=== PATIENT | male | born 1960 | race Caucasian/White ===

== ENCOUNTER → 2021-05-07 | Outpatient (REF) | payer OTHER | LOC: M SFHCRHEU 15:50 | PROVIDERS: ATTEND Internal Medicine | DX: Z53.20 Procedure and treatment not carried out because of patient's decision for unspecified reasons (principal) ==

== ENCOUNTER → 2021-05-18 | Outpatient (CLI) | payer OTHER ==
--- NOTE | 2021-05-23 15:51 | SLEEPHOME ---
DATE: 05/18/2021 ORDERED BY: Dr. Milla Maria, Rheumatology Diagnostic home sleep testing was performed due to concern for the obstructive sleep apnea syndrome in this patient with a history of chronic fatigue. There was 9 hours and 59 minutes of data reviewed. There was 8 hours and 11 minutes marked as time in bed. During the interval marked time in bed, there were 162 respiratory events identified of 10 seconds in duration or greater for a respiratory event index of 19.8. The events were obstructive. Baseline pulse rate 73. Pulse rate ranged 58-192. Baseline saturation 92%. Saturations fell to 78%, and testing was performed in both the supine and nonsupine positions. IMPRESSION: Abnormal home sleep testing with repetitive respiratory events and oxygen desaturations to 78% with a respiratory event index of 19.8 is consistent with the obstructive sleep apnea syndrome. RECOMMENDATION: The patient should be encouraged to undergo formal sleep evaluation.
== END ==
LOC: M SLEEP HO 10:46
PROVIDERS: ATTEND Internal Medicine
DX: R53.82 Chronic fatigue, unspecified (principal)

== ENCOUNTER → 2021-11-23 | Outpatient (REF) | payer OTHER ==
[2021-11-23 17:44] LABS: TOTAL PROTEIN 7.8 GM/DL (6.4-8.2)
[2021-11-27 14:57] LABS: ALBUMIN 4.42 GM/DL (3.29-5.55); ALBUMIN % 56.7 % (55.8-66.1); ALPHA-1-GLOBULIN % 4.1 % (2.9-4.9); ALPHA-1-GLOBULINS 0.32 GM/DL (0.17-0.41); ALPHA-2-GLOBULINS % 10.3 % (7.1-11.8); BETA-1-GLOBULINS 0.51 GM/DL (0.28-0.60); BETA-1-GLOBULINS % 6.5 % (4.7-7.2); BETA-2-GLOBULINS 0.48 GM/DL (0.19-0.55); BETA-2-GLOBULINS % 6.1 % (3.2-6.5); GAMMA GLOBULIN % 16.3 % (11.1-18.8); GAMMA GLOBULINS 1.27 GM/DL (0.65-1.58)
== END ==
LOC: M LAB REF 16:45
PROVIDERS: ATTEND Internal Medicine Nephrology
DX: N18.31 Chronic kidney disease, stage 3a (principal)

== ENCOUNTER → 2022-04-16 | Outpatient (REF) | payer OTHER ==
[2022-04-16 13:00] LABS: C REACTIVE PROTEIN QUANTITATIV 1.04 MG/DL (0.00-0.30)
== END ==
LOC: M SFHCRHEU 11:23
PROVIDERS: ATTEND Internal Medicine
DX: M35.01 Sjogren syndrome with keratoconjunctivitis (principal); E61.1 Iron deficiency

== ENCOUNTER 2022-09-08 21:05 | Emergency (ER) | payer OTHER ==
[~2022-09-08] VITALS: Ht 170.2 cm; Wt 101.3 kg
[2022-09-08 21:55] LABS: HEMATOCRIT 38.6 % (42.0-52.0); HEMOGLOBIN 13.1 g/dl (13.5-17.5); MEAN CORPUSCULAR HEMOGLOBIN 31.9 pg (27.0-33.0); MEAN CORPUSCULAR HGB CONC 33.9 g/dl (32.0-36.5); MEAN CORPUSCULAR VOLUME 93.9 fl (80.0-96.0); PLATELET COUNT, AUTOMATED 315 10^3/uL (150-450); RED BLOOD COUNT 4.11 10^6/uL (4.30-6.10)
[2022-09-08 22:11] LABS: BARBITURATES URINE NEGATIVE (NEGATIVE)
[2022-09-08 22:11] LABS: ETHYL ALCOHOL (ETHANOL) < 0.003 % (0.000-0.010)
[2022-09-08 22:12] LABS: AMPHETAMINES LEVEL URINE NEGATIVE (NEGATIVE); BENZODIAZEPINES URINE NEGATIVE (NEGATIVE); CANNABINOIDS URINE POSITIVE (NEGATIVE); COCAINE METABOLITE URINE NEGATIVE (NEGATIVE); METHADONE URINE NEGATIVE (NEGATIVE); OPIATES URINE NEGATIVE (NEGATIVE); PHENCYCLIDINE URINE NEGATIVE (NEGATIVE)
[2022-09-08 22:13] LABS: SALICYLATE LEVEL < 3.0 MG/DL (<30)
[2022-09-08 22:14] LABS: ACETAMINOPHEN LEVEL < 2.0 UG/ML (10.0-20.0); ALBUMIN 4.3 G/DL (3.2-5.2); ALKALINE PHOSPHATASE 71 U/L (46-116); ALT/SGPT 39 U/L (7.0-40); AST/SGOT 18 U/L (<34); BILIRUBIN,DIRECT 0.2 MG/DL (<0.4); BILIRUBIN,TOTAL 0.4 MG/DL (0.3-1.2); BLOOD UREA NITROGEN 15 MG/DL (9-23); CALCIUM LEVEL 9.2 MG/DL (8.3-10.6); CARBON DIOXIDE LEVEL 21 MMOL/L (20-31); CHLORIDE LEVEL 108 MMOL/L (98-107); GLOMERULAR FILTRATION RATE > 60.0 (>49); GLUCOSE, FASTING 124 MG/DL (74-106); POTASSIUM SERUM 3.9 MMOL/L (3.5-5.1); SODIUM LEVEL 139 MMOL/L (136-145); TOTAL PROTEIN 7.1 G/DL (5.7-8.2)
[2022-09-08 22:16] LABS: THYROID STIMULATING HORMONE 5.163 uIU/ML (0.55-4.78)
[2022-09-09] MEDS ORDERED: ENAL20TA11 PO (00:25)
[2022-09-09] MEDS ORDERED: PREG150C PO (00:25)
[2022-09-09] MEDS ORDERED: ZONI50CA11 PO ×2 (00:25)
[2022-09-09] MEDS ORDERED: HYDR-3490 PO (00:25)
[2022-09-09] MEDS ORDERED: HYDR200T3 PO (00:25)
[2022-09-09] MEDS ORDERED: DULO1CAP6 PO (00:25)
[2022-09-09] MEDS ORDERED: DULA4.5P INJ (00:25)
[2022-09-09] MEDS ORDERED: BUDE10.7 PO (00:25)
[2022-09-09] MEDS ORDERED: PANT40TA29 PO (00:25)
[2022-09-09] MEDS ORDERED: med rec comment (00:26)
[2022-09-09] MEDS ORDERED: LOVA40TA PO (00:26)
[2022-09-09] MEDS ORDERED: HOME MED LIST COMPLETE! XX SCH (00:30)
[2022-09-09] MEDS: SYMBICORT 160/4.5MCG INHALER 6GM INH SCH ×2 (08:00→21:10)
[2022-09-09] MEDS ORDERED: TIOTROPIUM INHALER/CAPSULE (SPIRIVA) INH SCH (08:00)
[2022-09-09] MEDS: PREGABALIN 75 MG CAP(LYRICA) PO SCH ×3 (09:00→20:32)
[2022-09-09] MEDS ORDERED: HYDROXYCHLOROQUINE 200 MG TAB PO SCH (09:00)
[2022-09-09] MEDS ORDERED: ENALAPRIL MALEATE 10 MG TAB PO SCH (09:00)
[2022-09-09] MEDS ORDERED: SIMVASTATIN 40 MG TAB PO SCH (09:00)
[2022-09-09] MEDS ORDERED: DULoxetine 30MG CAPSULE (CYMBALTA) PO SCH (09:00)
[2022-09-09] MEDS ORDERED: ZONISAMIDE 50 MG CAP (ZONEGRAN) PO SCH ×2 (09:00→21:00)
[2022-09-09 11:03] VITALS: BP 193/90
[2022-09-09 12:56] LABS: APPEARANCE, URINE MANUAL CLEAR (CLEAR); COLOR, URINE MANUAL YELLOW (YELLOW)
[2022-09-09 12:57] LABS: GLUCOSE, URINE (UA) MANUAL NEGATIVE (NEGATIVE); PROTEIN, URINE MANUAL NEGATIVE (NEGATIVE)
[2022-09-09 12:58] LABS: BILIRUBIN, URINE MANUAL NEGATIVE (NEGATIVE); BLOOD URINE MANUAL NEGATIVE (NEGATIVE); KETONE, URINE MANUAL 2+ mg/dL (NEGATIVE); LEUKOCYTE ESTERASE, URINE MAN NEGATIVE (NEGATIVE); NITRITE, URINE MANUAL NEGATIVE (NEGATIVE); UROBILINOGEN, URINE MANUAL NORMAL (NORMAL)
[2022-09-10 01:13] VITALS: BP 152/80
[2022-09-10] MEDS ORDERED: ZONISAMIDE 50 MG CAP (ZONEGRAN) PO SCH (09:00)
[2022-09-10] MEDS ORDERED: DULoxetine 30MG CAPSULE (CYMBALTA) PO SCH (09:00)
[2022-09-10] MEDS ORDERED: ENALAPRIL MALEATE 10 MG TAB PO SCH (09:00)
[2022-09-10] MEDS ORDERED: SIMVASTATIN 40 MG TAB PO SCH (09:00)
[2022-09-10] MEDS ORDERED: PANTOPRAZOLE 40MG TAB (PROTONIX) PO SCH (09:00)
[2022-09-10] MEDS ORDERED: HYDROXYCHLOROQUINE 200 MG TAB PO SCH (09:00)
== END 2022-09-10 01:27 ==
LOC: M ED 21:05
DX: R45.851 Suicidal ideations (principal); R45.850 Homicidal ideations; I44.4 Left anterior fascicular block; I45.10 Unspecified right bundle-branch block; E11.9 Type 2 diabetes mellitus without complications; E78.5 Hyperlipidemia, unspecified; I10 Essential (primary) hypertension; F12.10 Cannabis abuse, uncomplicated; Z79.52 Long term (current) use of systemic steroids; Z79.02 Long term (current) use of antithrombotics/antiplatelets; Z79.811 Long term (current) use of aromatase inhibitors; Z79.899 Other long term (current) drug therapy

== ENCOUNTER → 2022-11-26 | Outpatient (REF) | payer MEDICARE ==
[~2022-11-26] MED LIST: BUDE10.7 PO; DULA4.5P INJ; DULO1CAP6 PO; ENAL1TAB52 PO; HYDR-3490 PO; HYDR200T3 PO; LOVA40TA PO; PANT40TA29 PO; PREG150C PO; ZONI50CA11 PO; med rec comment
[2022-11-26 12:27] LABS: APPEARANCE, URINE CLEAR (CLEAR); BACTERIA, URINE AUTO NEGATIVE (NEGATIVE); BILIRUBIN, URINE AUTO NEGATIVE (NEGATIVE); BLOOD, URINE BLOOD NEGATIVE (NEGATIVE); COLOR, URINE STRAW (YELLOW); GLUCOSE, URINE (UA) AUTO NEGATIVE (NEGATIVE); KETONE, URINE AUTO NEGATIVE (NEGATIVE); LEUKOCYTE ESTERASE, URINE AUTO NEGATIVE (NEGATIVE); NITRITE, URINE AUTO NEGATIVE (NEGATIVE); PROTEIN, URINE AUTO NEGATIVE (NEGATIVE); RBC, URINE AUTO 0 /HPF (0-3); SPECIFIC GRAVITY URINE AUTO 1.005 (1.002-1.035); SQUAMOUS EPITHELIAL CELL UR AU 0 /HPF (0-6); UROBILINOGEN, URINE AUTO 0.2 mg/dL (0.0-2.0); WBC, URINE AUTO 0 /HPF (0-3)
[2022-11-26 13:05] LABS: CREATININE,RANDOM URINE 14.5 MG/DL
[2022-11-26 13:06] LABS: TOTAL PROTEIN,RANDOM URINE < 6.0 MG/DL (0.0-14.0)
[2022-11-26 16:45] LABS: C REACTIVE PROTEIN QUANTITATIV 0.6 MG/DL (<1.0)
[2022-11-26 16:46] LABS: COMPLEMENT C3 122.3 MG/DL (90.0-170.0); COMPLEMENT C4 33.5 MG/DL (12-36); PERCENT SATURATION 17.4 % (19.7-50.0)
[2022-11-28 15:08] LABS: COMPLEMENT TOTAL (CH50) > 60 U/mL (>41)
== END ==
LOC: M SFHCRHEU 11:36
PROVIDERS: ATTEND Internal Medicine
DX: M35.01 Sjogren syndrome with keratoconjunctivitis (principal); E61.1 Iron deficiency; Z79.899 Other long term (current) drug therapy

== ENCOUNTER → 2023-04-08 | Outpatient (REF) | payer MEDICARE ==
[~2023-04-08] MED LIST changes: -HYDR200T3 PO; +HYDR200T46 PO; -PREG150C PO; +PREG150C2 PO
== END ==
LOC: M SMT PRO 13:28
PROVIDERS: ATTEND Urology
DX: R97.20 Elevated prostate specific antigen [PSA] (principal)

== ENCOUNTER → 2023-11-26 | Outpatient (REF) | payer MEDICARE ==
[2023-11-26 13:08] LABS: BASO # 0.1 10^3/uL (0.0-0.2); BASO % 0.7 % (0.0-1.0); EOS % 0.5 % (0.0-3.0); HEMOGLOBIN 14.5 g/dl (13.5-17.5); LYMPH # 2.1 10^3/uL (1.5-5.0); LYMPH % 24.6 % (24.0-44.0); MEAN CORPUSCULAR HEMOGLOBIN 31.6 pg (27.0-33.0); MEAN CORPUSCULAR VOLUME 95.9 fl (80.0-96.0); MONO # 0.7 10^3/uL (0.0-0.8); NEUTROPHILS # 5.5 10^3/uL (1.5-8.5); NEUTROPHILS % 65.4 % (36.0-66.0); PLATELET COUNT, AUTOMATED 184 10^3/uL (150-450); RED BLOOD COUNT 4.59 10^6/uL (4.30-6.10); WHITE BLOOD COUNT 8.5 10^3/uL (4.0-10.0)
[2023-11-26 13:13] LABS: ERYTHROCYTE SEDIMENTATION RATE 15 mm/hr (0-20)
[2023-11-26 13:41] LABS: C REACTIVE PROTEIN QUANTITATIV < 0.40 MG/DL (<1.0); COMPLEMENT C3 141.4 MG/DL (90.0-170.0)
[2023-11-26 13:42] LABS: ALBUMIN 4.3 G/DL (3.2-5.2); ALKALINE PHOSPHATASE 61 U/L (46-116); ALT/SGPT 18 U/L (7.0-40); AST/SGOT 14 U/L (<34); BILIRUBIN,DIRECT 0.2 MG/DL (<0.4); BILIRUBIN,TOTAL 0.4 MG/DL (0.3-1.2); BLOOD UREA NITROGEN 21 MG/DL (9-23); CALCIUM LEVEL 9.6 MG/DL (8.3-10.6); CARBON DIOXIDE LEVEL 32 MMOL/L (20-31); CHLORIDE LEVEL 100 MMOL/L (98-107); COMPLEMENT C4 35.4 MG/DL (12-36); CREATININE FOR GFR 1.05 MG/DL (0.70-1.30); GLOMERULAR FILTRATION RATE > 60.0 (>49); GLUCOSE, FASTING 86 MG/DL (74-106); POTASSIUM SERUM 4.8 MMOL/L (3.5-5.1); SODIUM LEVEL 138 MMOL/L (136-145); TOTAL PROTEIN 7.3 G/DL (5.7-8.2)
[2023-11-26 13:44] LABS: TOTAL 25(OH) VITAMIN D 46.6 NG/ML (20.0-100.0)
== END ==
LOC: M SFHCRHEU 11:18
PROVIDERS: ATTEND Internal Medicine
DX: M35.01 Sjogren syndrome with keratoconjunctivitis (principal); Z79.899 Other long term (current) drug therapy

== ENCOUNTER → 2024-05-17 | Outpatient (CLI) | payer OTHER, MEDICAID ==
[~2024-05-17] MED LIST changes: +PROHANCE 279.3MG/ML 15ML VIAL As Ordered ONE; +PROHANCE 279.3MG/ML 5ML VIAL As Ordered ONE
== END ==
LOC: M RAD 12:53
PROVIDERS: ATTEND Urology
DX: R97.20 Elevated prostate specific antigen [PSA] (principal); N42.9 Disorder of prostate, unspecified
CPT/HCPCS: 72197; A9576

== ENCOUNTER → 2025-02-28 | Outpatient (REF) | payer OTHER, MEDICAID ==
[~2025-02-28] MED LIST changes: -PROHANCE 279.3MG/ML 15ML VIAL As Ordered ONE; -PROHANCE 279.3MG/ML 5ML VIAL As Ordered ONE
[2025-02-28 15:25] LABS: BASO # 0.0 10^3/uL (0.0-0.2); BASO % 0.5 % (0.0-1.0); EOS # 0.1 10^3/uL (0.0-0.5); EOS % 1.0 % (0.0-3.0); LYMPH # 1.7 10^3/uL (1.5-5.0); LYMPH % 21.6 % (24.0-44.0); MONO # 0.7 10^3/uL (0.0-0.8); MONO % 9.3 % (2.0-8.0); NEUTROPHILS # 5.4 10^3/uL (1.5-8.5); NEUTROPHILS % 67.1 % (36.0-66.0); PLATELET COUNT, AUTOMATED 189 10^3/uL (150-450)
[2025-02-28 15:28] LABS: APPEARANCE, URINE CLEAR (CLEAR); BACTERIA, URINE AUTO NEGATIVE (NEGATIVE); BILIRUBIN, URINE AUTO NEGATIVE (NEGATIVE); BLOOD, URINE BLOOD NEGATIVE (NEGATIVE); GLUCOSE, URINE (UA) AUTO NEGATIVE (NEGATIVE); KETONE, URINE AUTO NEGATIVE (NEGATIVE); LEUKOCYTE ESTERASE, URINE AUTO NEGATIVE (NEGATIVE); NITRITE, URINE AUTO NEGATIVE (NEGATIVE); PROTEIN, URINE AUTO NEGATIVE (NEGATIVE); RBC, URINE AUTO 0 /HPF (0-3); SPECIFIC GRAVITY URINE AUTO 1.005 (1.002-1.035); SQUAMOUS EPITHELIAL CELL UR AU 0 /HPF (0-6); UROBILINOGEN, URINE AUTO 0.2 mg/dL (0.0-2.0); WBC, URINE AUTO 3 /HPF (0-3)
[2025-02-28 15:32] LABS: ERYTHROCYTE SEDIMENTATION RATE 24 mm/hr (0-20)
[2025-02-28 15:35] LABS: ALT/SGPT 27 U/L (7.0-40); AST/SGOT 24 U/L (<34); CALCIUM LEVEL 10.0 MG/DL (8.3-10.6); CARBON DIOXIDE LEVEL 31 MMOL/L (20-31); CHLORIDE LEVEL 101 MMOL/L (98-107); COMPLEMENT C4 45.0 MG/DL (12-36); CREATININE FOR GFR 1.15 MG/DL (0.70-1.30); GLOMERULAR FILTRATION RATE 71.1 (>49); POTASSIUM SERUM 3.9 MMOL/L (3.5-5.1); SODIUM LEVEL 143 MMOL/L (136-145)
[2025-02-28 15:36] LABS: C REACTIVE PROTEIN QUANTITATIV < 0.50 MG/DL (<1.0)
[2025-02-28 15:38] LABS: TOTAL 25(OH) VITAMIN D 58.0 NG/ML (20.0-100.0)
[2025-02-28 15:45] LABS: TOTAL PROTEIN,RANDOM URINE 9.0 MG/DL (0.0-14.0)
== END ==
LOC: M SFHCRHEU 10:56
PROVIDERS: ATTEND Internal Medicine
DX: M35.01 Sjogren syndrome with keratoconjunctivitis (principal); Z79.899 Other long term (current) drug therapy